=== PATIENT | female | born 1965 | race Caucasian/White ===

== ENCOUNTER 2017-10-29 14:10 | Emergency (ER) | payer SELFPAY ==
[~2017-10-29] VITALS: Ht 180.3 cm; Wt 89.0 kg
[2017-10-29 14:25] VITALS: BP 150/88
[2017-10-29] MEDS ORDERED: METHOCARBAMOL 500 MG TABLET PO ONE (14:45)
[2017-10-29] MEDS ORDERED: KETOROLAC TROMETHAMINE 10 MG TABLET PO ONE (14:45)
[2017-10-29] MEDS ORDERED: BACITRACIN 0.9 GM PACKET OINTMENT TP ONE (14:56)
== END 2017-10-29 15:19 | disposition home or self-care (01) ==
LOC: EMS 14:12
DX: S80.02XA Contusion of left knee, initial encounter (principal); S80.211A Abrasion, right knee, initial encounter; S60.511A Abrasion of right hand, initial encounter; M54.2 Cervicalgia; I10 Essential (primary) hypertension; W01.10XA Fall on same level from slipping, tripping and stumbling with subsequent striking against unspecified object, initial encounter; Y93.89 Activity, other specified; Y92.89 Other specified places as the place of occurrence of the external cause; Y99.8 Other external cause status
CPT/HCPCS: 99283